=== PATIENT | male | born 1950 | race Two or more races ===

== ENCOUNTER 2018-02-26 17:28 | Emergency (ER) | payer MEDICARE ==
[~2018-02-26] VITALS: Ht 172.7 cm; Wt 99.8 kg
[2018-02-26 18:34] VITALS: BP 143/90
[2018-02-26] MEDS ORDERED: HYDROcodone-ACET 10/325MG TAB PO ONE (19:15)
== END 2018-02-26 19:32 | disposition home or self-care (01) ==
LOC: ER 17:33
DX: B02.9 Zoster without complications (principal); E78.5 Hyperlipidemia, unspecified

== ENCOUNTER 2018-03-03 13:29 | Emergency (ER) | payer MEDICARE ==
[~2018-03-03] VITALS: Ht 172.7 cm; Wt 99.8 kg
[2018-03-03 16:32] VITALS: BP 153/91
== END 2018-03-03 17:39 | disposition home or self-care (01) ==
LOC: ER 13:29
DX: B02.9 Zoster without complications (principal); Z76.0 Encounter for issue of repeat prescription

== ENCOUNTER 2018-11-29 11:20 | Emergency (ER) | payer MEDICARE, OTHER ==
[~2018-11-29] VITALS: Ht 175.3 cm; Wt 99.8 kg
[2018-11-29 11:27] VITALS: BP 123/87
[2018-11-29 12:07] LABS: Urine Bacteria NONE SEEN /hpf (None Seen); Urine Blood Negative /uL (Negative); Urine Specific Gravity 1.024 (1.001-1.035); Urine WBC 1 /hpf (0 - 3)
== END 2018-11-29 13:36 | disposition home or self-care (01) ==
LOC: ER 11:20
DX: M51.36 Other intervertebral disc degeneration, lumbar region (principal); M79.18 Myalgia, other site; E78.5 Hyperlipidemia, unspecified
CPT/HCPCS: 72100; 81001; 93005

== ENCOUNTER → 2019-11-03 | Day surgery (SDC) | payer OTHER ==
[~2019-11-03] VITALS: Ht 175.3 cm; Wt 101.6 kg
[~2019-11-03] MED LIST: BALS750C6 PO; BUPIVACAINE 0.25% INJ 50ML VIAL ONE; DUTA1CAP PO; GLYCOPYRROLATE 0.2 MG/ML 1ML VIAL ONE; HYDROmorphone HCL 2 MG/ML VL IV PRN; LIDOCAINE 1% HCL (LOCAL ANESTH.) INJ 20ML MDV ONE; METOCLOPRAMIDE HCL 5MG/ml INJ 2ml VIAL ONE; MIDAZOLAM HCL 1MG/1ML-2 ML VIAL ONE; NALOXONE HCL 0.4 MG/ML VIAL IV PRN; NEOSTIGMINE 1 MG/ML INJ (10mg/10ML VIAL) ONE; ONDANSETRON HCL 4 MG/2 ML VIAL IV PRN; PROPOFOL 10 MG/ML 20 ML IV ONE; ROCURONIUM 10MG/ML 10ML VIAL IV ONE; ROPIVACAINE 0.5% (5MG/ML) 20ML AMPULE IJ ONE; ROSU10TA16 PO; SUCCINYLCHOLINE CHLORIDE 20 MG/ML 10ML VIAL IV ONE; ceFAZolin 1GM/50ML 50 ML IV ONE; fentaNYL CITRATE 100 MCG/2 ML VL ONE; hydrALAZINE HCL 20 MG/ML VL IV PRN
[2019-11-03 09:12] VITALS: BP 129/81
== END | disposition home or self-care (01) ==
LOC: SUR 05:48
PROVIDERS: ATTEND Orthopaedic Surgery
DX: S83.241A Other tear of medial meniscus, current injury, right knee, initial encounter (principal); S83.281A Other tear of lateral meniscus, current injury, right knee, initial encounter; M25.761 Osteophyte, right knee; M94.261 Chondromalacia, right knee; G47.33 Obstructive sleep apnea (adult) (pediatric); E66.9 Obesity, unspecified; K21.9 Gastro-esophageal reflux disease without esophagitis; M19.90 Unspecified osteoarthritis, unspecified site; Z79.899 Other long term (current) drug therapy; Z68.33 Body mass index [BMI] 33.0-33.9, adult; X58.XXXA Exposure to other specified factors, initial encounter; Y93.89 Activity, other specified; Y92.89 Other specified places as the place of occurrence of the external cause; Y99.8 Other external cause status
CPT/HCPCS: 29876; 29880; J0330; J0690; J2001; J2250; J2704; J2765; J3010; J3490